=== PATIENT | male | born 1970 | race Caucasian/White ===

== ENCOUNTER 2021-07-28 18:17 | Emergency (ER) | payer BC, SELFPAY ==
[2021-07-28] VITALS (7 sets, daily range): BP systolic 122–156; BP diastolic 68–98; PULSE 68–92; RESP 16; TEMP 36.8–37.1; O2SAT 94–100; BMI 31.6
--- NOTE | 2021-07-28 18:37 | CT_ITS ---
PROCEDURE INFORMATION: Exam: CT Abdomen Without Contrast Exam date and time: 07/28/2021 6:37 PM Age: 51 years old Clinical indication: Abdominal pain; Flank; Left; Additional info: Stone protocol TECHNIQUE: Imaging protocol: Computed tomography images of the abdomen without contrast. Radiation optimization: All CT scans at this facility use at least one of these dose optimization techniques: automated exposure control; mA and/or kV adjustment per patient size (includes targeted exams where dose is matched to clinical indication); or iterative reconstruction. COMPARISON: No relevant prior studies available. FINDINGS: Mediastinal space: Circumferential wall thickening in the distal esophagus. Layering fluid in the esophagus. Liver: Markedly fatty liver with geographic areas of focal fatty sparing. Gallbladder and bile ducts: Gallbladder contains stones. No gallbladder wall thickening or sanya-cholecystic fluid. Pancreas: Fatty infiltration of the pancreas. Spleen: Normal. No splenomegaly. Adrenals: Normal. No mass. Kidneys and ureters: Left ureteral stone (4 mm) at the ureterovesical junction with mild associated left hydroureteronephrosis and perinephric fat stranding. No other renal or ureteral stones. Stomach and bowel: No evidence of small-bowel obstruction. Appendix: Appendix is normal. Intraperitoneal space: Hazy perivascular fat stranding centered in the mesenteric root and leaflets (e.g. shani mesentery ). No free fluid. No pneumoperitoneum. Lymph nodes: Conspicuous, shotty mesenteric lymph nodes with clear mesenteric fat 'halos' scattered throughout the mesenteric root and leaflets. Vasculature: Mild amount of calcified and non-calcified arterial atherosclerosis. No abdominal aortic aneurysm. Reproductive: Nonspecific prostate calcifications. Bones/joints: Pars defect on the left at L5. No spondylolisthesis. No acute osseous abnormality. Soft tissues: Bilateral fat containing inguinal hernias. IMPRESSION: 1. Left ureteral stone (4 mm) at the ureterovesical junction with mild associated hydroureteronephrosis and renal edema. 2. Ill-defined inflammatory changes centered in the mesenteric root and leaflets compatible with mesenteric panniculitis. 3. Markedly fatty liver. Consider non-emergent referral to Hepatology. 4. Distal esophageal wall thickening, compatible with gastroesophageal reflux esophagitis. 5. Layering fluid in the esophagus, posing increased risk for aspiration. 6. Cholelithiasis without evidence of acute cholecystitis.
[2021-07-28 18:46] LABS: Chloride 102 mmol/L (98-107)
[2021-07-28 18:47] LABS: Potassium 3.6 mmoL/L (3.5-5.1); Sodium 140 mmol/L (136-145)
[2021-07-28 18:49] LABS: Alanine Aminotransferase 71 U/L (12-78); Alkaline Phosphatase 88 U/L (38-126); Aspartate Amino Transferase 51 U/L (17-59); Bilirubin,Total 0.4 mg/dl (0.2-1.3); Blood Urea Nitrogen 12 mg/dl (9-20); Creatinine Clearance Estimated 100 mL/min (50-200); Estimated Glomerular Filt Rate 71 ml/min (>60); GFR (African American) 85 ML/MIN (>60)
[2021-07-28 18:50] LABS: Albumin Level 4.7 g/dl (3.5-5.0); Albumin/Globulin Ratio 1.6 (1.1-1.8); Anion Gap 13.6 mEq/L (5-15); Calcium 9.4 mg/dl (8.4-10.2); Carbon Dioxide 28 mmol/L (22.0-30.0); Glucose 122 mg/dl (74-100); Total Protein,Serum 7.7 g/dl (6.3-8.2)
[2021-07-28 18:51] LABS: Basophils # 0.1 K/mm3 (0-0.2); Basophils % 0.9 % (0.1-2.0); Eosinophils # 0.2 K/mm3 (0.0-0.4); Eosinophils % 1.9 % (0.1-12.0); Hematocrit 47.9 % (42.0-52.0); Hemoglobin 16.6 g/dL (14.1-18.0); Lymphocytes # 3.6 K/mm3 (0.7-4.5); Lymphocytes % 42.8 % (10-50); Mean Corpuscular HGB Conc 34.6 g/dL (31.8-35.4); Mean Corpuscular Hemoglobin 30.6 pg (27.0-31.2); Mean Corpuscular Volume 88.4 fl (80-94); Mean Platelet Volume 7.6 fl (7.4-10.4); Monocytes # 0.5 K/mm3 (0.1-1.0); Monocytes % 5.5 % (1.7-9.3); Neutrophils # 4.1 K/mm3 (1.8-7.8); Platelet Count 339 K/mm3 (142-424); Red Blood Count 5.42 M/mm3 (4.60-6.20); Red Cell Distribution Width 13.1 % (11.5-17.5); White Blood Count 8.3 K/mm3 (4.8-10.8)
--- NOTE | 2021-07-28 18:57 | PC.NURSE ---
pt to rad.
--- NOTE | 2021-07-28 19:12 | PC.NURSE ---
PT now resting more comfortable in the bed. Advises his pain has decreased to a 2 at this time. No new needs. Waiting on results of CT
[2021-07-28 19:49] LABS: Appearance,Urine SL CLOUDY (Clear); Bilirubin,Urine Negative (Negative); Blood, Urine TRACE-I (Negative); Color,Urine YELLOW (Yellow); Glucose,Urine (UA) Negative (Negative); Ketones,Urine Negative (Negative); Leukocyte Esterase,Urine Negative (Negative); Nitrate,Urine Negative (Negative); PH,Urine 7.5 (5.0-8.5); Protein,Urine Negative (Negative); Urobilinogen,Urine 0.2 EU/dl (0.2)
[2021-07-28 19:51] LABS: Microscopic, Urine URINE MICROSCOPIC (MICROSCOPIC)
--- NOTE | 2021-07-28 19:58 | PC.NURSE ---
Called radiology to check on status of ct report
[2021-07-28 20:03] LABS: Amorphous Sediment,Urine 1+ /lpf
--- NOTE | 2021-07-28 20:27 | [facility].EDGENADL ---
ED Disposition Clinical Impression: Renal colic on left side Cholelithiasis Qualifiers: Cholelithiasis location: gallbladder Cholecystitis presence: without cholecystitis Biliary obstruction: without biliary obstruction Qualified Code(s): K80.20 - Calculus of gallbladder without cholecystitis without obstruction Disposition: Home, Self-Care Condition on Discharge: Good Instructions: DI for Kidney Stones Additional Instructions: see pcp and urologist for follow up Prescriptions: Tamsulosin HCl [Flomax 0.4mg capsule] 0.4 mg PO HS #10 cap Transmission Status: Pending to [id number] Referrals: Provider,Referral, [Primary Care Provider] - - Critical Care Critical Care Time: No Attestation: On 07/28/21, the high probability of a clinically significant, sudden or life threatening deterioration of the following system(s) required my full and direct attention, intervention and personal management. The time I documented below is in addition to time spent performing reported procedures but includes the following listed in this critical care notation. Medical Decision Making - Medical Records Medical records reviewed: Yes: I reviewed the patient's medical records. - Shashank Inquiry Pt receiving controlled substance: No Vital Signs: 07/28/21 18:18 07/28/21 18:53 Temperature 98.2 F Temperature Source Oral Pulse Rate 85 Pulse Rate [Right] 92 H Respiratory Rate 16 Blood Pressure 136/92 H Blood Pressure [Right Arm] 156/98 H Blood Pressure Mean [Right Arm] 117 Blood Pressure Source [Right Arm] Automatic Cuff Blood Pressure Position [Right Arm] Sitting 02 Sat by Pulse Oximetry 100 100 Oxygen Delivery Method Room Air - Lab Data Lab results reviewed: Yes: I reviewed the patient's lab results. Lab Results 07/28/21 18:25: WBC 8.3, RBC 5.42, Hgb 16.6, Hct 47.9, MCV 88.4, MCH 30.6, MCHC 34.6, RDW 13.1, Plt Count 339, MPV 7.6, Neut % (Auto) 49.0, Lymph % (Auto) 42.8, Isabella % (Auto) 5.5, Eos % (Auto) 1.9, Baso % (Auto) 0.9, Neut # (Auto) 4.1, Lymph # (Auto) 3.6, Isabella # (Auto) 0.5, Eos # (Auto) 0.2, Baso # (Auto) 0.1 07/28/21 18:25: Sodium 140, Potassium 3.6, Chloride 102, Carbon Dioxide 28, Anion Gap 13.6, BUN 12, Creatinine 1.10, Estimated Creat Clear 100, Estimated GFR 71, Est GFR ( Amer) 85, Glucose 122 H, Calcium 9.4, Total Bilirubin 0.4, AST 51, ALT 71, Alkaline Phosphatase 88, Total Protein 7.7, Albumin 4.7, Globulin 3.0, Albumin/Globulin Ratio 1.6 07/28/21 19:50: Urine Color Yellow, Urine Appearance Sl cloudy, Urine pH 7.5, Ur Specific [place] 1.020, Urine Protein Negative, Urine Glucose (UA) Negative, Urine Ketones Negative, Urine Blood Trace-i, Urine Nitrate Negative, Urine Bilirubin Negative, Urine Urobilinogen 0.2, Ur Leukocyte Esterase Negative, Urine RBC 3-5, Amorphous Sediment 1+ Result diagrams: 07/28/21 18:25 07/28/21 18:25 Orders (Tests/Meds): ED MEDICATIONS Generic Name Dose Route Start Last Admin Trade Name Freq PRN Reason Stop Dose Admin Sodium Chloride 1,000 mls @ 999 mls/hr 07/28/21 18:45 07/28/21 18:43 Sod Chlor 0.9% 1000ml Bag IV 07/28/21 19:45 999 mls/hr .Q1H1M ALEXANDER Administration Tamsulosin HCl 0.4 mg 07/28/21 21:00 Tamsulosin 0.4mg Capsule PO 08/27/21 20:59 HS ALEXANDER Discontinued Medications Generic Name Dose Route Start Last Admin Trade Name Freq PRN Reason Stop Dose Admin Acetaminophen/Codeine Phosphate 1 nellie 07/28/21 20:25 Acetaminophen 300mg W/Codeine 30mg Take Home Pack (6) PO 07/28/21 20:26 ONCE ONE Hydromorphone HCl 1 mg 07/28/21 18:39 07/28/21 18:42 Hydromorphone 2mg/Ml Syringe IV 07/28/21 18:40 1 mg ONCE ONE Administration Ketorolac Tromethamine 30 mg 07/28/21 18:39 07/28/21 18:42 Ketorolac 30mg/Ml Vial IV 07/28/21 18:40 30 mg ONCE ONE Administration Ondansetron HCl 4 mg 07/28/21 18:39 07/28/21 18:43 Ondansetron 4mg/2ml Vial IV 07/28/21 18:40 4 mg ONCE ONE Administ
== END 2021-07-28 20:45 | disposition home or self-care (01) ==
PROVIDERS: Emergency Medicine; Emergency Provider Emergency Medicine
DX: N20.0 Calculus of kidney (principal); K80.20 Calculus of gallbladder without cholecystitis without obstruction; Z87.442 Personal history of urinary calculi; Z88.5 Allergy status to narcotic agent
CPT/HCPCS: 74150; 80053; 81001; 85025; 96365; 96375; 99283; J2405